=== PATIENT | male | born 1970 | race Caucasian/White ===

== ENCOUNTER 2020-07-13 19:09 | Emergency (ER) | payer MEDICARE, OTHER ==
[~2020-07-13] VITALS: Ht 167.6 cm; Wt 74.8 kg
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
--- NOTE | 2020-07-13 20:25 | NUR ---
blood glucose 187
--- NOTE | 2020-07-13 21:38 | NUR ---
ADMITTING DEPT ABLE TO CONTACT PT'S CAREGIVER (ASH, ) PER ASH, PT'S BROTHER (KIRSTY, ) WILL LICENSED DISPENSING OPTICIAN PATIENT
--- NOTE | 2020-07-13 21:49 | NUR ---
Patient discharged to home in stable condition. Written and verbal after care instructions given. Patient verbalizes understanding of instruction. Pt ambulatory with a steady gait
--- NOTE | 2020-07-13 21:58 | NUR ---
[facility]acheco cadet in ED - 07/13/20 at 2159 by KIERSTEN Patient discharged to home in stable condition. Written and verbal after care instructions given. Patient verbalizes understanding of instruction. Pt ambulatory with a steady gait.
--- NOTE | 2020-07-13 22:30 | NUR ---
PER PT'S BROTHER ASH, UNABLE TO FORESTRY AID PATIENT UNTIL 07/14/20 @ 1000
--- NOTE | 2020-07-14 | NUR ---
Pt sister unable to pickup patient. Per sister, the patient's address is [address] [place] [id number]
--- NOTE | 2020-07-14 07:05 | NUR ---
gave report to ELLIOTT Eller for bhargav
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
[2020-07-14 07:38] VITALS: BP 113/65
--- NOTE | 2020-07-14 08:40 | NUR ---
PT YELLING TOWARDS TO STAFF INSISTED HE WANTS TO LEAVE AND SMOKE OUTSIDE. AWARE.
--- NOTE | 2020-07-14 08:44 | NUR ---
Patient eloped from facility. ER MD notified.
--- NOTE | 2020-07-14 08:50 | NUR ---
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
== END 2020-07-13 21:50 | disposition home or self-care (01) ==
LOC: ER 19:09
DX: H92.02 Otalgia, left ear (principal); E11.9 Type 2 diabetes mellitus without complications; F20.9 Schizophrenia, unspecified; F17.200 Nicotine dependence, unspecified, uncomplicated